=== PATIENT | female | born 1955 | race Caucasian/White ===

== ENCOUNTER 2018-03-23 18:03 | Emergency (ER) | payer BC ==
[~2018-03-23] VITALS: Ht 152.4 cm; Wt 79.1 kg
[~2018-03-23 18:03] MED LIST: CARVEDILOL; CYCLOSPORINE25 M2 PO; ELITE MAGNESIUM1 TAB PO; GENGRAF25 MG PO; ZETIA10 MG PO; ZOLOFT
[2018-03-23 18:07] VITALS: BP 183/84; TEMP 97.4
[2018-03-23] MEDS ORDERED: NORVASC 5MG5 MG/TAB PO (18:38)
[2018-03-23] MEDS ORDERED: BUSPAR DIVIDOSE15 MG PO (18:39)
[2018-03-23] MEDS ORDERED: CELLCEPT 250MG250 MG PO (18:40)
[2018-03-23] MEDS ORDERED: GENGRAF25 MG PO (18:40)
[2018-03-23] MEDS ORDERED: LIPITOR 10MG10 MG PO (18:41)
[2018-03-23] MEDS ORDERED: CEPHALEXIN500 M1 PO (18:42)
[2018-03-23] MEDS ORDERED: BACTRIM DS 8001 TAB PO (18:43)
[2018-03-23 18:44] LABS: BASO # 0.1 (0.0-0.2); BASO % 0.4 % (0.0-2.0); EOS # 0.3 (0.0-0.7); EOS % 2.9 % (0-4.0); GRAN # 7.2 (1.4-6.5); GRAN % 63.3 % (42.2-75.2); HEMATOCRIT 38.8 % (37.0-47.0); LYMPH # 3.1 (1.2-3.4); LYMPH % 27.1 % (20.0-51.0); MEAN CELL VOLUME 90 fl (80.0-100.0); MEAN CORPUSCULAR HEMOGLOBIN 30 pg (27.0-31.0); MEAN CORPUSCULAR HGB CONC 34 g/dl (33.0-37.0); MEAN PLATELET VOLUME 9.5 fl (7.4-10.4); MONO # 0.7 (0.1-0.6); MONO % 6.1 % (1.7-9.3); PLATELET COUNT 392 K/mm3 (130-400); RED BLOOD COUNT 4.33 M/mm3 (4.10-5.30)
[2018-03-23 18:52] LABS: C-REACTIVE PROTEIN 1.8 mg/dL (0.0-0.9); CALCIUM 10.5 mg/dL (8.4-10.2); CREATININE, serum 1.01 mg/dL (0.52-1.25); POTASSIUM 3.9 mmol/L (3.4-5.0)
[2018-03-23] MEDS ORDERED: DOXYCYCLINE 10100 MG PO (19:51)
[2018-03-23 20:10] VITALS: PULSE 88
== END 2018-03-23 20:10 | disposition home or self-care (01) ==
LOC: COL.ER 18:03
PROVIDERS: Emergency Medicine
DX: L03.116 Cellulitis of left lower limb (principal); I10 Essential (primary) hypertension; Z94.0 Kidney transplant status; Z87.448 Personal history of other diseases of urinary system; Z87.2 Personal history of diseases of the skin and subcutaneous tissue

== ENCOUNTER 2019-04-26 10:31 | Day surgery (SDC) | payer BC ==
[~2019-04-26] VITALS: Ht 152.4 cm; Wt 85.5 kg
[~2019-04-26 10:31] MED LIST changes: +BACTRIM DS 8001 TAB PO; +BUSPAR DIVIDOSE15 MG PO; +CELLCEPT 250MG250 MG PO; +CEPHALEXIN500 M1 PO; +DOXYCYCLINE 10100 MG PO; +LIPITOR 10MG10 MG PO; +NORVASC 5MG5 MG/TAB PO
[2019-04-26] MEDS ORDERED: DAZIDOX10 MG PO (11:10)
[2019-04-26] MEDS ORDERED: AMBIEN 10MG10 MG PO (11:11)
[2019-04-26] MEDS ORDERED: ZYLOPRIM 100MG100 MG PO (11:11)
[2019-04-26] MEDS ORDERED: HYGROTON 2525 MG/TAB PO (11:11)
[2019-04-26] MEDS ORDERED: NORVASC 10MG10 MG PO (11:12)
[2019-04-26] MEDS ORDERED: CYMBALTA 60MG60 MG PO (11:12)
[2019-04-26] MEDS ORDERED: CELLCEPT 250MG250 MG PO (11:12)
[2019-04-26] MEDS ORDERED: BUSPIRONE HCL7.5 MG PO (11:12)
[2019-04-26] MEDS ORDERED: ROXICODONE 55 MG/TAB PO (14:59)
[2019-04-26 15:38] VITALS: BP 114/45; PULSE 78; TEMP 99.1
--- NOTE | 2019-04-26 15:38 | NUR ---
Patient arrives back to [facility] alert, reports pain in abdomen 4-5/10. Denies nausea. Patient monitor applied, vitals stable. Patient given soda and toast.
[2019-04-26 15:55] VITALS: BP 110/41; PULSE 70
--- NOTE | 2019-04-26 16:00 | NUR ---
Patient tolerates soda and toast without any nausea. Reports pain is getting a little worse.
[2019-04-26 16:10] VITALS: BP 119/51; PULSE 74; TEMP 98.7
--- NOTE | 2019-04-26 16:20 | NUR ---
Patient reports that Dr Cardenas told patient she could wear an abdominal binder for comfort. Dr Cardenas contacted an states patient can go home with an abdominal binder. Abdominal binder applied at this time to comfort. Patient reports binder helps discomfort feel much better.
--- NOTE | 2019-04-26 16:25 | NUR ---
Patient reports that he pain is much better after PRN pain medication and abdominal binder. Patient reports she is ready to go home.
--- NOTE | 2019-04-26 16:30 | NUR ---
Dismissal instructions gone over with patient and patient's spouse. Both verbalize understanding and all questions answered.
[2019-04-26 16:48] VITALS: BP 145/69; PULSE 77; TEMP 98.5
== END 2019-04-26 16:35 | disposition home or self-care (01) ==
LOC: SDCO 10:31
DX: K43.2 Incisional hernia without obstruction or gangrene (principal); Z94.0 Kidney transplant status; Q61.3 Polycystic kidney, unspecified; Z88.8 Allergy status to other drugs, medicaments and biological substances; Z79.899 Other long term (current) drug therapy; E78.5 Hyperlipidemia, unspecified; I10 Essential (primary) hypertension; F41.8 Other specified anxiety disorders; G89.29 Other chronic pain; M54.2 Cervicalgia; Z84.1 Family history of disorders of kidney and ureter; Z82.49 Family history of ischemic heart disease and other diseases of the circulatory system; M10.9 Gout, unspecified
CPT/HCPCS: C1781; J0690; J1100; J1885; J2405; J2704; J2710; J3010; J7120

== ENCOUNTER 2019-05-08 14:23 | Emergency (ER) | payer BC ==
[~2019-05-08] VITALS: Wt 84.5 kg
[~2019-05-08 14:23] MED LIST changes: +AMBIEN 10MG10 MG PO; +BUSPIRONE HCL7.5 MG PO; +CYMBALTA 60MG60 MG PO; +DAZIDOX10 MG PO; +HYGROTON 2525 MG/TAB PO; +NORVASC 10MG10 MG PO; +ROXICODONE 55 MG/TAB PO; +ZYLOPRIM 100MG100 MG PO
[2019-05-08 14:33] VITALS: BP 147/78; PULSE 70; TEMP 97.6
[2019-05-08] MEDS ORDERED: NEURONTIN100 MG/CAP PO (14:57)
[2019-05-08] MEDS ORDERED: NORCO 325 MG-51 TAB PO (15:02)
== END 2019-05-08 15:03 | disposition home or self-care (01) ==
LOC: COL.ER 14:23
DX: R10.9 Unspecified abdominal pain (principal); G89.18 Other acute postprocedural pain; E78.5 Hyperlipidemia, unspecified; I10 Essential (primary) hypertension

== ENCOUNTER → 2021-11-05 | Outpatient (CLI) | payer BC ==
[~2021-11-05] MED LIST changes: +NEURONTIN100 MG/CAP PO; +NORCO 325 MG-51 TAB PO
== END ==
LOC: COL.VAS 11:24
DX: I51.7 Cardiomegaly (principal)